=== PATIENT | male | born 1975 | race Two or more races ===

== ENCOUNTER → 2023-12-09 | Day surgery (SDC) | payer OTHER ==
[~2023-12-09] MED LIST: FENTANYL CITRATE/PF 100MCG/2 ML INJ ONE; LIDOCAINE HCL 2% LOCAL INJ 5 ML SDV VIAL INJ ONE; MIDAZOLAM HCL 2 MG/2 ML VIAL ONE; PROPOFOL IV EMULSION 10 MG/ML 20 ML VIAL ONE
[2023-12-09] MEDS: LACTATED RINGER'S 1,000 ML ONE (12:15)
[2023-12-09 14:48] VITALS: TEMP 97
[2023-12-09 15:10] VITALS: BP 125/90; PULSE 68; RESP 18; O2SAT 99
== END | disposition home or self-care (01) ==
LOC: OR 11:42
PROVIDERS: ATTEND Internal Medicine Gastroenterology
DX: Z09 Encounter for follow-up examination after completed treatment for conditions other than malignant neoplasm (principal); D12.4 Benign neoplasm of descending colon; K63.5 Polyp of colon; K64.8 Other hemorrhoids; D36.10 Benign neoplasm of peripheral nerves and autonomic nervous system, unspecified; K29.50 Unspecified chronic gastritis without bleeding; K44.9 Diaphragmatic hernia without obstruction or gangrene; K31.89 Other diseases of stomach and duodenum; F17.200 Nicotine dependence, unspecified, uncomplicated
CPT/HCPCS: 43239; 45385; 93005; J2003; J2250; J2704; J3010; J7121; 45378